=== PATIENT | female | born 1970 | race Caucasian/White ===

== ENCOUNTER 2018-04-03 14:54 | Outpatient (CLI) | payer OTHER ==
--- NOTE | 2018-04-03 18:14 | ULT ---
UNILATERAL LIMITED LEFT BREAST ULTRASOUND: 04/03/18 HISTORY: 48-year-old female with history of left breast palpable finding. The patient has had prior reduction. 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 In the left breast in approximately the 4 o'clock position corresponding to the area of palpable conc celio, approximately 8 cm from the nipple, there is a circumscribed hypoechoic oval focus measuring 0.3 x 0.6 x 0.6 cm certainly consistent with that of a benign fibroadenoma. This mass was not seen with certainly on mammography. IMPRESSION: BIRADS 3: Probably Benign Finding Initial Short-Interval Follow-Up Suggested Initial short-term follow up (usually 6-month) examination Six month followup left breast ultrasound is recommended. Given patient's strong family history for b reast cancer, six month followup ultrasound study to document stability is recommended. POS: OFF
== END 2018-04-03 14:55 | disposition home or self-care (01) ==
LOC: BICMAMMO 14:54
PROVIDERS: ATTEND Family Medicine
DX: R92.8 Other abnormal and inconclusive findings on diagnostic imaging of breast (principal); N63.10 Unspecified lump in the right breast, unspecified quadrant; Z80.3 Family history of malignant neoplasm of breast; Z98.890 Other specified postprocedural states
CPT/HCPCS: 77066; G0279